=== PATIENT | male | born 1965 | race Caucasian/White ===

== ENCOUNTER → 2017-02-27 | Outpatient (CLI) | payer OTHER | LOC: RAD 10:36 | DX: M25.512 Pain in left shoulder (principal) | CPT/HCPCS: 73030 ==

== ENCOUNTER → 2021-06-28 | Outpatient (CLI) | payer OTHER ==
[~2021-06-28] MED LIST: ABILIFY 5 MG TAB5 MG PO; ASPIR-TRIN325 MG PO; ASPIRIN EC81 MG PO; ATORVASTATIN CA20 MG PO; CYMBALTA 30 MG30 MG PO; GABAPENTIN300 MG PO; HYDROCODON-ACE1 EAC2 PO; KENALOG CREAM 015 GM TD; METOPROLOL TART25 MG PO; NITROSTAT0.4 MG SL; PAXIL20 MG PO; PERCOCET 7.5-31 EACH PO; PLAVIX 75 MG TA75 MG PO; PRINIVIL20 MG PO; TOPROL XL25 MG PO; TRAZODONE HCL100 MG PO; TRIAMCINOLONE A15 GM TP; VOLTAREN100 GM TP; ZANAFLEX 4 MG TA4 MG PO; ZOCOR40 MG PO
== END ==
LOC: HEART 5 05-08 08:45
DX: R07.9 Chest pain, unspecified (principal)
CPT/HCPCS: 78452; A9502; J2785

== ENCOUNTER 2021-10-12 12:29 | Emergency (ER) | payer OTHER ==
[2021-10-12 15:59] LABS: HEMOGLOBIN 10.6 gm/dl (14.0-17.5); RED BLOOD COUNT 3.71 M/UL (4.20-5.50)
[2021-10-12 16:27] LABS: BUN/CREATININE RATIO 10 (0-10)
[2021-10-13] MEDS ORDERED: PENICILLIN V P500 MG PO (11:43)
== END 2021-10-12 22:58 | disposition left against medical advice (07) ==
LOC: ER1 12:29
PROVIDERS: Physician Assistant Medical
DX: R60.0 Localized edema (principal); R51.9 Headache, unspecified; F17.210 Nicotine dependence, cigarettes, uncomplicated
CPT/HCPCS: 80053; 83605; 85025; 87040; 99283

== ENCOUNTER 2021-10-13 11:06 | Emergency (ER) | payer OTHER ==
[2021-10-13] MEDS ORDERED: PENICILLIN V P500 MG PO (11:43)
== END 2021-10-13 11:49 | disposition home or self-care (01) ==
LOC: ER1 11:06
DX: K08.89 Other specified disorders of teeth and supporting structures (principal); F17.210 Nicotine dependence, cigarettes, uncomplicated; I51.9 Heart disease, unspecified; J44.9 Chronic obstructive pulmonary disease, unspecified
CPT/HCPCS: 99283

== ENCOUNTER → 2022-01-04 | Outpatient (CLI) | payer OTHER ==
[~2022-01-04] MED LIST changes: +CRESTOR40 MG PO; +PENICILLIN V P500 MG PO; +ZETIA10 MG PO
== END ==
LOC: EXRD 01-02 15:45
DX: M79.604 Pain in right leg (principal); I73.9 Peripheral vascular disease, unspecified
CPT/HCPCS: 93926

== ENCOUNTER → 2022-01-30 | Day surgery (SDC) | payer OTHER ==
[~2022-01-30] MED LIST changes: +TRIAMCINOLONE A80 GM TP; +VIT B
== END | disposition home or self-care (01) ==
LOC: OR 01-02 07:30
DX: D64.9 Anemia, unspecified (principal); K29.70 Gastritis, unspecified, without bleeding; B96.81 Helicobacter pylori [H. pylori] as the cause of diseases classified elsewhere; K31.A11 Gastric intestinal metaplasia without dysplasia, involving the antrum; K63.5 Polyp of colon; K29.80 Duodenitis without bleeding; K44.9 Diaphragmatic hernia without obstruction or gangrene; I73.9 Peripheral vascular disease, unspecified; M19.90 Unspecified osteoarthritis, unspecified site; J45.20 Mild intermittent asthma, uncomplicated; I25.10 Atherosclerotic heart disease of native coronary artery without angina pectoris; I10 Essential (primary) hypertension; E78.00 Pure hypercholesterolemia, unspecified; Z79.02 Long term (current) use of antithrombotics/antiplatelets; Z79.82 Long term (current) use of aspirin; Z95.1 Presence of aortocoronary bypass graft; Z72.0 Tobacco use; Z20.822 Contact with and (suspected) exposure to COVID-19
CPT/HCPCS: J2704; J7120

== ENCOUNTER 2022-02-14 14:05 | Emergency (ER) | payer OTHER ==
[2022-02-14 15:38] LABS: RED BLOOD COUNT 1.94 M/UL (4.20-5.50); WHITE BLOOD COUNT 6.9 K/UL (4.5-11.0)
== END 2022-02-15 00:45 | disposition home or self-care (01) ==
LOC: ER1 14:05
PROVIDERS: Preventive Medicine Occupational Medicine
DX: D64.9 Anemia, unspecified (principal); I25.10 Atherosclerotic heart disease of native coronary artery without angina pectoris
CPT/HCPCS: 36430; 80053; 85025; 86140; 86850; 86900; 86901; 86920; 99284; J7050; P9016

== ENCOUNTER 2022-02-24 16:56 | Inpatient (IN) | payer OTHER ==
[~2022-02-24] VITALS: Ht 165.1 cm; Wt 70.0 kg
[~2022-02-24 16:56] MED LIST changes: +LOPRESSOR 50 MG50 MG PO; -METOPROLOL TART25 MG PO
[2022-02-24 17:54] LABS: RED BLOOD COUNT 2.49 M/UL (4.20-5.50); WHITE BLOOD COUNT 7.5 K/UL (4.5-11.0)
[2022-02-24 18:47] LABS: HEMOGLOBIN 6.6 gm/dl (14.0-17.5)
[2022-02-25 04:26] LABS: HEMOGLOBIN 8.7 gm/dl (14.0-17.5)
[2022-02-25] MEDS ORDERED: HYDROCODON-ACE1 EAC2 PO (10:20)
[2022-02-25] MEDS ORDERED: PROTONIX 40 MG40 M1 PO (10:21)
[2022-02-25] MEDS ORDERED: LISINOPRIL20 MG PO (10:24)
[2022-02-25] MEDS ORDERED: VOLTAREN ARTHRI20 GM TOP (10:24)
[2022-02-25] MEDS ORDERED: FERROUS SULFAT325 MG PO (10:25)
[2022-02-25] MEDS ORDERED: TIZANIDINE HCL4 MG PO (10:25)
[2022-02-25] MEDS ORDERED: VARENICLINE TART1 MG PO (10:25)
[2022-02-25] MEDS ORDERED: SPIRONOLACTONE25 MG PO (10:26)
[2022-02-25] MEDS ORDERED: ASPIRIN EC81 MG PO (10:26)
[2022-02-25] MEDS ORDERED: NITROGLYCERIN0.4 MG SL (10:27)
[2022-02-25 16:17] LABS: HEMOGLOBIN 8.6 gm/dl (14.0-17.5)
[2022-02-25 16:24] LABS: RED BLOOD COUNT 3.11 M/UL (4.20-5.50); WHITE BLOOD COUNT 19.4 K/UL (4.5-11.0)
[2022-02-26 05:47] LABS: HEMOGLOBIN 8.1 gm/dl (14.0-17.5); RED BLOOD COUNT 2.99 M/UL (4.20-5.50); WHITE BLOOD COUNT 19.2 K/UL (4.5-11.0)
[2022-02-27 05:39] LABS: RED BLOOD COUNT 2.57 M/UL (4.20-5.50); WHITE BLOOD COUNT 11.2 K/UL (4.5-11.0)
[2022-02-27 11:17] LABS: HBSAG SCREEN Negative (Negative); HCV AB <0.1 (0.0-0.9); HEP A AB, IGM Negative (Negative); HEP B CORE AB, IGM Negative (Negative)
[2022-02-27 14:34] LABS: HEMOGLOBIN 8.6 gm/dl (14.0-17.5)
[2022-02-27 14:41] LABS: RED BLOOD COUNT 2.96 M/UL (4.20-5.50); WHITE BLOOD COUNT 18.2 K/UL (4.5-11.0)
[2022-02-27 15:15] LABS: GAMMA GLUTAMYL TRANSPEPTIDASE 233 U/L (7-64)
[2022-02-28 05:06] LABS: HEMOGLOBIN 7.6 gm/dl (14.0-17.5); WHITE BLOOD COUNT 17.1 K/UL (4.5-11.0)
[2022-02-28 05:34] LABS: RED BLOOD COUNT 2.59 M/UL (4.20-5.50)
[2022-03-01 09:21] LABS: RED BLOOD COUNT 2.22 M/UL (4.20-5.50)
[2022-03-01 09:23] LABS: HEMOGLOBIN 6.7 gm/dl (14.0-17.5); WHITE BLOOD COUNT 35.4 K/UL (4.5-11.0)
[2022-03-02 06:31] LABS: HEMOGLOBIN 9.3 gm/dl (14.0-17.5); RED BLOOD COUNT 3.15 M/UL (4.20-5.50)
[2022-03-02 06:33] LABS: WHITE BLOOD COUNT 31.9 K/UL (4.5-11.0)
--- NOTE | 2022-03-02 13:17 | NUR ---
Report called to Wes[facility] at [facility]. Pt is going to Neuro ICU Neuro 1 at [facility]. Attempting to call EMS to arrange transport at this time.
[2022-03-03 07:12] LABS: RHEUMATOID ARTHRITIS FACTOR <10.0 IU/mL (<14.0)
[2022-03-04 14:11] LABS: RNP ANTIBODIES 0.2 AI (0.0-0.9); SJOGREN'S ANTI-SS-A <0.2 AI (0.0-0.9)
[2022-03-04 15:11] LABS: ALDOLASE >56.0 U/L (3.3-10.3)
== END 2022-03-02 21:00 | DRG 871 ==
LOC: ER1 16:56 → CDU 02-25 09:30 → CCU 02-25 09:30
PROVIDERS: Emergency Medicine; Family Medicine; Internal Medicine Nephrology; Internal Medicine Pulmonary Disease; Student in an Organized Health Care Education/Training Program; ADMIT Family Medicine
PROC: 30233N1 Transfusion of Nonautologous Red Blood Cells into Peripheral Vein, Percutaneous Approach (ICD-10-PCS; principal; 2022-02-24)
PROC: 5A09457 Assistance with Respiratory Ventilation, 24-96 Consecutive Hours, Continuous Positive Airway Pressure (ICD-10-PCS; 2022-02-25)
PROC: 3E03329 Introduction of Other Anti-infective into Peripheral Vein, Percutaneous Approach (ICD-10-PCS; 2022-02-25)
PROC: 3E033XZ Introduction of Vasopressor into Peripheral Vein, Percutaneous Approach (ICD-10-PCS; 2022-02-25)
PROC: 05HM33Z Insertion of Infusion Device into Right Internal Jugular Vein, Percutaneous Approach (ICD-10-PCS; 2022-02-26)
PROC: 5A1945Z Respiratory Ventilation, 24-96 Consecutive Hours (ICD-10-PCS; 2022-02-27)
PROC: 0BH17EZ Insertion of Endotracheal Airway into Trachea, Via Natural or Artificial Opening (ICD-10-PCS; 2022-02-27)
PROC: 0DB78ZX Excision of Stomach, Pylorus, Via Natural or Artificial Opening Endoscopic, Diagnostic (ICD-10-PCS; 2022-02-28)
PROC: 30233N1 Transfusion of Nonautologous Red Blood Cells into Peripheral Vein, Percutaneous Approach (ICD-10-PCS; 2022-03-01)
DX: A41.9 Sepsis, unspecified organism (principal); R65.21 Severe sepsis with septic shock; J96.01 Acute respiratory failure with hypoxia; J96.02 Acute respiratory failure with hypercapnia; G93.41 Metabolic encephalopathy; N17.0 Acute kidney failure with tubular necrosis; I21.4 Non-ST elevation (NSTEMI) myocardial infarction; J18.9 Pneumonia, unspecified organism; K25.4 Chronic or unspecified gastric ulcer with hemorrhage; M62.82 Rhabdomyolysis; D62 Acute posthemorrhagic anemia; E87.1 Hypo-osmolality and hyponatremia; Z20.822 Contact with and (suspected) exposure to COVID-19; I25.10 Atherosclerotic heart disease of native coronary artery without angina pectoris; G89.29 Other chronic pain; E78.5 Hyperlipidemia, unspecified; E87.6 Hypokalemia; J44.9 Chronic obstructive pulmonary disease, unspecified; F17.200 Nicotine dependence, unspecified, uncomplicated; I73.9 Peripheral vascular disease, unspecified; M75.02 Adhesive capsulitis of left shoulder; J30.9 Allergic rhinitis, unspecified; F41.9 Anxiety disorder, unspecified; J45.20 Mild intermittent asthma, uncomplicated; M51.36 Other intervertebral disc degeneration, lumbar region; G43.909 Migraine, unspecified, not intractable, without status migrainosus; F32.A Depression, unspecified; N40.1 Benign prostatic hyperplasia with lower urinary tract symptoms; E11.22 Type 2 diabetes mellitus with diabetic chronic kidney disease; N18.31 Chronic kidney disease, stage 3a; R34 Anuria and oliguria; R80.9 Proteinuria, unspecified; E86.0 Dehydration; Z81.1 Family history of alcohol abuse and dependence; Z98.890 Other specified postprocedural states; Z12.11 Encounter for screening for malignant neoplasm of colon; Z71.6 Tobacco abuse counseling; Z79.82 Long term (current) use of aspirin; Z79.899 Other long term (current) drug therapy; Z95.1 Presence of aortocoronary bypass graft; Z95.5 Presence of coronary angioplasty implant and graft; Z82.61 Family history of arthritis; Z82.49 Family history of ischemic heart disease and other diseases of the circulatory system; Z82.5 Family history of asthma and other chronic lower respiratory diseases; Z81.8 Family history of other mental and behavioral disorders; Z83.438 Family history of other disorder of lipoprotein metabolism and other lipidemia; Z83.3 Family history of diabetes mellitus; Z91.81 History of falling; Z79.02 Long term (current) use of antithrombotics/antiplatelets; Z79.891 Long term (current) use of opiate analgesic; E83.39 Other disorders of phosphorus metabolism; R13.10 Dysphagia, unspecified; D69.6 Thrombocytopenia, unspecified; E83.52 Hypercalcemia
CPT/HCPCS: 31500; 36415; 36430; 36600; 70450; 71045; 76705; 80048; 80053; 80061; 80074; 80076; 80202; 81001; 82085; 82140; 82270; 82550; 82553; 82595; 82607; 82728; 82746; 82803; 82962; 82977; 83036; 83520; 83605; 83615; 83690; 83735; 84100; 84132; 84484; 85007; 85014; 85018; 85025; 85027; 85379; 85384; 85610; 85652; 85730; 86140; 86235; 86431; 86850; 86900; 86901; 86920; 87040; 87070; 87081; 87086; 87205; 87449; 90935; 90937; 93005; 94002; 94003; 94660; 94760; 96365; 96368; 96375; 96376; 99285; C1752; C9113; J0692; J1644; J2250; J2543; J2704; J2930; J3370; J3475; J3480; J7030; J7050; J7070; P9016; P9047; U0002